=== PATIENT | female | born 1995 | race American Indian/Alaskan Native ===

== ENCOUNTER 2021-05-09 23:10 | Emergency (ER) | payer BC ==
--- NOTE | 2021-05-10 01:16 | XRay Report ---
CHEST 2 VIEWS INDICATION / CLINICAL INFORMATION: Chest pain on inhalation. COMPARISON: None available. FINDINGS: SUPPORT DEVICES: None. HEART / MEDIASTINUM: No significant abnormality. LUNGS / PLEURA: No significant pulmonary or pleural abnormality. No pneumothorax. ADDITIONAL FINDINGS: No significant additional findings. IMPRESSION: 1. No active cardiopulmonary disease. Signer Name: Checo Ruiz II, MD Signed: 05/10/2021 1:11 AM Workstation Name: [id number]
[2021-05-10 01:51] LABS: Basophils # (Auto) 0.1 K/mm3 (0.0-0.1); Eosinophils # (Auto) 0.1 K/mm3 (0.0-0.4); Eosinophils % (Auto) 1.3 % (0.0-4.3); Lymphocytes # (Auto) 2.3 K/mm3 (1.2-5.4); Lymphocytes % (Auto) 45.9 % (13.4-35.0); Mean Corpuscular HGB Conc 30 % (30-34); Mean Corpuscular Volume 77 fl (79-97); Monocytes # (Auto) 0.4 K/mm3 (0.0-0.8); Monocytes % (Auto) 7.2 % (0.0-7.3); Platelet Count 343 K/mm3 (140-440); Red Blood Count 4.96 M/mm3 (3.65-5.03); Red Cell Distribution Width 15.7 % (13.2-15.2)
[2021-05-10 02:00] LABS: Hematocrit 38.4 % (30.3-42.9); Hemoglobin 11.7 gm/dl (10.1-14.3)
[2021-05-10 02:04] LABS: Alanine Aminotransferase 9 units/L (7-56); Albumin 4.6 g/dL (3.9-5); Blood Urea Nitrogen 10 mg/dL (7-17); Hemolysis Index 1
[2021-05-10 02:12] LABS: BUN/Creatinine Ratio 14
[2021-05-10] MEDS ORDERED: KETOROLAC 30 MG/1 ML INJ IV ONE (06:39)
--- NOTE | 2021-05-10 06:46 | Emergency Department Report ---
HPI - General Chief Complaint: Chest Pain Time Seen by Provider: 05/10/21 06:02 - HPI HPI: 26-year-old female with no known past medical history presents complaining of few weeks of pleuritic chest pain. The patient describes the pain as constant but worsened with deep breath. The pain is in the center of her chest and slightly towards the left side. It does not radiate. She denies any associated shortness of breath, nausea, palpitations, or any other symptoms. When the symptoms first began she had nasal congestion and URI symptoms which have since resolved. She has not tried anything for symptoms. There are no known aggravating or alleviating factors. Her LMP was April 10. Denies any recent surgery, travel, or prolonged immobilization. Denies leg swelling. Also denies any associated fever/chills, headache, vision change, neck pain, back pain, cough, shortness of breath, abdominal pain, nausea/vomiting, dysuria, focal weakness, sensory changes, or any other complaints. The patient is not vaccinated against COVID-19. ED Past Medical Hx - Past Medical History Previous Medical History?: No - Medications Home Medications: Home Medications Medication Instructions Recorded Confirmed Last Taken Type Ibuprofen [Motrin 600 MG tab] 600 mg PO Q8H PRN #20 tablet 05/10/21 Unknown Rx ED Review of Systems ROS: Stated complaint: CHEST PAIN Other details as noted in HPI Comment: All other systems reviewed and negative Constitutional: denies: chills, fever Eyes: denies: eye pain, vision change ENT: congestion (resolved). denies: throat pain Respiratory: denies: cough, shortness of breath Cardiovascular: chest pain. denies: palpitations, syncope Gastrointestinal: denies: abdominal pain, nausea, vomiting Genitourinary: denies: dysuria, frequency Musculoskeletal: denies: back pain, arthralgia Skin: denies: rash, lesions Neurological: denies: headache, weakness, numbness Hematological/Lymphatic: denies: easy bleeding Physical Exam - Physical Exam Vital Signs: Vital Signs 05/10/21 00:50 Temperature 99.0 F Pulse Rate 88 Respiratory 20 Rate Blood Pressure 129/79 [Right] O2 Sat by Pulse 100 Oximetry Physical Exam: GENERAL: Well developed and well nourished. No acute distress HEAD: Normocephalic. No obvious signs of trauma. ENT: Moist mucous membranes. EYES: Extraocular movements are intact. Pupils are equal round and reactive to light bilaterally NECK: Supple. Full ROM is intact. Trachea is midline. LUNGS: Nonlabored breathing. Equal chest rise bilaterally. Clear to auscultation bilaterally. CARDIOVASCULAR: Regular rate and rhythm. No murmurs or rubs. VASCULAR: Cap refill < 2 seconds ABDOMEN: Abdomen is soft and nondistended. There is no significant tenderness, guarding or rebound. SKIN: Skin is warm and dry NEURO: Patient is awake, alert, and oriented. 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 No focal deficits. Normal motor and sensory exam throughout. Normal speech. MUSCULOSKELETAL: No obvious deformities. No significant tenderness. Normal ROM throughout. BACK/SPINE: No costovertebral angle tenderness. ED Course Vital Signs 05/10/21 00:50 Temperature 99.0 F Pulse Rate 88 Respiratory 20 Rate Blood Pressure 129/79 [Right] O2 Sat by Pulse 100 Oximetry ED Medical Decision Making - Lab Data Result diagrams: 05/10/21 01:05 05/10/21 01:05 Lab Results 05/10/21 05/10/21 05/10/21 Range/Units 01:05 01:05 01:05 WBC 5.0 (4.5-11.0) K/mm3 RBC 4.96 (3.65-5.03) M/mm3 Hgb 11.7 (10.1-14.3) gm/dl Hct 38.4 (30.3-42.9) % MCV 77 L (79-97) fl MCH 24 L (28-32) pg MCHC 30 (30-34) % RDW 15.7 H (13.2-15.2) % Plt Count 343 (140-440) K/mm3 Lymph % (Auto) 45.9 H (13.4-35.0) % [place] % (Auto) 7.2 (0.0-7.3) % Eos % (Auto) 1.3 (0.0-4.3) % Baso % (Auto) 1.0 (0.0-1.8) % Lymph # (Auto) 2.3 (1.2-5.4) K/mm3 [place] # (Auto) 0.4 (0.0-0.8) K/mm3 Eos # (Auto) 0.1 (0.0-0.4) K/mm3 Baso # (Auto) 0.1 (0.0-0.1) K/mm3 Seg Neutrophils % 44.6 (40.0-70.0) % Seg Neutrophils # 2.2 (1.8-7.7) K/mm3 D-Dimer 315.42 H (0-234) ng/mlDDU Sodium 142 (137-145) mmol/L Potassium 3.9 (3.6-5.0) mmol/L Chloride 107.0 (98-107) mmol/L Carbon Dioxide 22 (22-30) mmol/L Anion Gap 17 mmol/L BUN 10 (7-17) mg/dL Creatinine 0.7 (0.6-1.2) mg/dL Estimated GFR > 60 ml/min BUN/Creatinine Ratio 14 % Glucose 85 (65-100) mg/dL Calcium 9.0 (8.4-10.2) mg/dL Total Bilirubin 0.20 (0.1-1.2) mg/dL AST 15 (5-40) units/L ALT 9 (7-56) units/L Alkaline Phosphatase 69 (35-129) units/L Troponin T < 0.010 (0.00-0.029) ng/mL Total Protein 7.8 (6.3-8.2) g/dL Albumin 4.6 (3.9-5) g/dL Albumin/Globulin Ratio 1.4 % 05/10/21 Range/Units 08:08 WBC (4.5-11.0) K/mm3 RBC (3.65-5.03) M/mm3 Hgb (10.1-14.3) gm/dl Hct (30.3-42.9) % MCV (79-97) fl MCH (28-32) pg MCHC (30-34) % RDW (13.2-15.2) % Plt Count (140-440) K/mm3 Lymph % (Auto) (13.4-35.0) % [place] % (Auto) (0.0-7.3) % Eos % (Auto) (0.0-4.3) % Baso % (Auto) (0.0-1.8) % Lymph # (Auto) (1.2-5.4) K/mm3 [place] # (Auto) (0.0-0.8) K/mm3 Eos # (Auto) (0.0-0.4) K/mm3 Baso # (Auto) (0.0-0.1) K/mm3 Seg Neutrophils % (40.0-70.0) % Seg Neutrophils # (1.8-7.7) K/mm3 D-Dimer (0-234) ng/mlDDU Sodium (137-145) mmol/L Potassium (3.6-5.0) mmol/L Chloride (98-107) mmol/L Carbon Dioxide (22-30) mmol/L Anion Gap mmol/L BUN (7-17) mg/dL Creatinine (0.6-1.2) mg/dL Estimated GFR ml/min BUN/Creatinine Ratio % Glucose (65-100) mg/dL Calcium (8.4-10.2) mg/dL Total Bilirubin (0.1-1.2) mg/dL AST (5-40) units/L ALT (7-56) units/L Alkaline Phosphatase (35-129) units/L Troponin T < 0.010 (0.00-0.029) ng/mL Total Protein (6.3-8.2) g/dL Albumin (3.9-5) g/dL Albumin/Globulin Ratio % - EKG Data -: EKG Interpreted by [place] - EKG Data 05/10/21 07:31 Normal sinus rhythm. Normal axis. Normal intervals. No ectopy. No significant ST segment or T wave abnormalities. - Radiology Data Radiology results: report reviewed - Medical Decision Making 26-year-old female complaining of few weeks of pleuritic chest pain after URI symptoms which have since resolved. She is not vaccinated against COVID-19. On initial assessment she was afebrile and with normal vital signs. Although the patient is PERC negative, she had labs drawn in triage. There is no significant leukocytosis or anemia. Kidney function is normal and there are no significant electrolyte abnormalities. Troponin is negative. D- dimer is positive. Chest x-ray shows no acute abnormalities. Because of the elevated D-dimer, CTA of the chest was ordered. CTA of the chest shows no acute abnormality and no evidence of PE. Suspect the patient is suffering from pleurisy given recent URI symptoms. The patient's heart score is 0. On repeat assessment at 8 AM, the patient is sitting comfortably in a chair. She reports that her pain is improved after Toradol. Her repeat troponin has still not been drawn but the patient states she does not want to wait for repeat troponin. She understands that foregoing repeat troponin confers possible risk of missed diagnoses which could result in disability/. She still wants to be discharged and follow-up. We discussed the results of the diagnostic testing as well as my suspicion for pleurisy given recent URI symptoms. I recommended that she take ibuprofen 600 mg up to 3 times daily as needed for pain and follow-up very closely with a primary care doctor. She was encouraged to return to the emergency department should she develop significantly worsening symptoms or any other new health concerns. The patient expressed understanding and agreement with this plan of care. Critical care attestation.: If time is entered above; I have spent that time in minutes in the direct care of this critically ill patient, excluding procedure time. ED Disposition Clinical Impression: Pleurisy Disposition: 01 HOME / SELF CARE / HOMELESS Is pt being admited?: No Condition: Stable Instructions: Pleurisy Additional Instructions: Please follow-up within the next few days with a primary care doctor. Take ibuprofen 600 mg up to 3 times daily as needed for pain with food. Return for significantly worsening symptoms or any new health concerns. Prescriptions: Ibuprofen [Motrin 600 MG tab] 600 mg PO Q8H PRN #20 tablet PRN Reason: Pain Referrals: [facility] [Provider Group] - 3-5 Days Heart Score - HEART Score History: Slightly suspicious EKG: Normal Age: < 45 Risk factors: No known risk factors Troponin: < normal limit HEART Score: 0 - EKG Read Time Time EKG Completed: 00:56 EKG Read Time: 00:59
--- NOTE | 2021-05-10 07:05 | Cat Scan Report ---
CTA CHEST WITH CONTRAST INDICATION / CLINICAL INFORMATION: Elevated D-dimer, pleuritic chest pain, assess for PE. TECHNIQUE: Axial CT images were obtained through the chest after injection of 100 cc Omnipaque 350 IV contrast. 3 plane MIP and/or 3D reconstructions were produced. All CT scans at this location are per formed using CT dose reduction for ALARA by means of automated exposure control. COMPARISON: None available. FINDINGS: VASCULAR FINDINGS: PULMONARY ARTERY: Pulmonary artery is normal in size. No filling defects are present compatible with pulmonary artery embolus.. THORACIC AORTA: No significant abnormality. CORONARY ARTERY CALCIFICATION: None. NONVASCULAR FINDINGS: LOWER NECK:Soft tissues of the lower neck and thyroid demonstrate no significant abnormalities or acu te findings. HEART: No significant abnormality. MEDIASTINUM / DEDRICK: No significant abnormality. ESOPHAGUS: No significant abnormality. LYMPH NODES: No adenopathy within the axilla, mediastinum, or dedrick. LUNGS: No acute air space or interstitial disease. PLEURA: No pleural effusion. No pneumothorax. THORACIC SOFT TISSUES: No significant abnormality of the chest wall or upper thoracic musculature. BONES: No significant skeletal abnormalities. ADDITIONAL CHEST FINDINGS: None. UPPER ABDOMEN: No significant abnormality. IMPRESSION: 1. No CT evidence for pulmonary embolism. 2. No acute findings. Signer Name: Checo Ruiz II, MD Signed: 05/10/2021 7:01 AM Workstation Name: [email or web address]
[2021-05-10 08:24] VITALS: BP 120/79
--- NOTE | 2021-05-10 09:59 | Electrocardiograph Report ---
[facility] Test Date: 2021-05-10 Test Time: 00:56:02 Pat Name: TERRI BERNARD Department: Room: Gender: F Improvement Lead: AMIE : 1995 Requested By: JESSICA LUCIANO Order Number: [id number] Reading MD: Francisco J Borges Measurements Intervals [place] Rate: 67 P: 40 HI: 144 QRS: 48 QRSD: 75 T: 39 QT: 379 QTc: 401 Interpretive Statements Sinus rhythm No previous ECG available for comparison Electronically Signed On 05-10-2021 9:58:55 EST by Francisco J Borges
== END 2021-05-10 08:22 | disposition home or self-care (01) ==
LOC: ED 23:10
DX: R09.1 Pleurisy (principal)
CPT/HCPCS: 36415; 71046; 71275; 80053; 84484; 85025; 85379; 93005; 93010; 96374; 99284; J1885; Q9967